=== PATIENT | male | born 1960 | race Caucasian/White ===

== ENCOUNTER 2019-06-24 10:54 | Outpatient (CLI) | payer OTHER, SELFPAY ==
[2019-06-24 11:13] VITALS: BMI 30.9
--- NOTE | 2019-06-24 11:19 | ECG_ITS ---
Lung unchanged pre/post procedure; Intraprocedure shortess of breath; Symptoms resoled by discharge EXERCISE DATA: The patient was exercised by Tom protocol. Baseline heart rate was 70 beats per minute. Baseline blood pressure was 145/83 millimeters of mercury. Target heart rate was 161 beats per minute. Maximum heart rate achieved was 160, which was 99 % of the target heart rate. Maximum blood pressure was 197/105 millimeters of mercury. Total exercise time was 9 minutes 19 seconds. Maximum METs achieved was 13.5, maximum VO2 was 47.3. The reason for ending the test was maximum effort achieved. The patient complained of Shotness of breath during the stress test, which then resolved at the end of the test. ELECTROCARDIOGRAM: BASELINE: Sinus rhythm, normal axis, no significant ST-T changes at the baseline noted. EXERCISE: At the peak exercise level, No significant ST-T changes suggestive of ischemia noted. RECOVERY: During the recovery period, heart rate dropped appropriately. No significant ST-T changes in the recovery suggestive of ischemia noted. CONCLUSION: 1. Exercise capacity good. 2. Heart rate response was appropriate. 3. Blood pressure response was appropriate. 4. Symptoms not suggestive of ischemia. 5. Electrocardiogram portion of the stress test was not suggestive of ischemia. 6. Nuclear scan will be documented separately. Electronically Signed On 06-26-2019 19:00:10 GRAB [employer]TER by Kiara Hoang M.D. [email or web address]
[2019-06-24 12:22] VITALS: BP 165/65; PULSE 99
== END 2019-06-24 10:55 | disposition home or self-care (01) ==
LOC: CDL 10:59
PROVIDERS: PCP Nurse Practitioner Family; Visit Provider Nurse Practitioner Family
DX: I10 Essential (primary) hypertension (principal)
CPT/HCPCS: 93017

== ENCOUNTER 2020-09-27 13:00 | Outpatient (CLI) | payer OTHER, SELFPAY | END 2020-09-27 13:01 | disposition home or self-care (01) | LOC: SLEEP 10-01 12:37 | PROVIDERS: PCP Nurse Practitioner Family; Visit Provider Nurse Practitioner Family | DX: G47.10 Hypersomnia, unspecified (principal) | CPT/HCPCS: G0399 ==